=== PATIENT | male | born 1950 | race Caucasian/White ===

== ENCOUNTER 2018-11-10 21:42 | Emergency (ER) | payer OTHER ==
--- NOTE | 2018-11-10 22:01 | EDPHY ---
H & P Stated Complaint: ASTHMA ISSUES, [facility] Time Seen by Provider: 11/10/18 22:01 - Personal History Current Tetanus Diphtheria and Acellular Pertussis (TDAP): Yes - Medical/Surgical History Hx Asthma: Yes Hx Chronic Respiratory Disease: No Hx Diabetes: No Hx Cardiac Disease: No Hx Renal Disease: No Hx Cirrhosis: No Hx Alcoholism: No Hx HIV/AIDS: No Hx Splenectomy or Spleen Trauma: No Other PMH: ASTHMA - Social History Smoking Status: Never smoked Constitutional: Initial Vital Signs Temperature (C) 37.2 C 11/10/18 21:45 Heart Rate 74 11/10/18 21:45 Respiratory Rate 16 11/10/18 21:45 Blood Pressure 158/85 H 11/10/18 21:45 O2 Sat (%) 94 11/10/18 21:45 O2 Delivery Mode Room Air Allergies/Adverse Reactions: No Known Allergies Allergy (Unverified 11/10/18 21:43) Home Medications: Medication Instructions Recorded Symbicort 160-4.5 Mcg Inh (*) 11/10/18 Medical Decision Making ED Course/Re-evaluation: CHIEF COMPLAINT: Concerned about new asthma medication HISTORY OF PRESENT ILLNESS: The patient is a 68 y/o male with a history of asthma complaining of shortness of breath onset 5 days ago. He feels like he is unable to take a full breath. He initially thought that the symptoms were due to a cold, but his symptoms did not improve. He the read the side effects of Symbicort, which is a new medication for him, he became concerned that he could from an asthma attack as that is a side effect. He then used the incentive spirometer, which had lower numbers than normal. Due to the combination of symptoms, he decided to present to the emergency department. No fever, chills, sore throat, chest pain, abdominal pain, urinary or bowel complaints, numbness, paresthesias. REVIEW OF SYSTEMS: A comprehensive 10 system review of systems is otherwise negative aside from elements mentioned in the history of present illness and medical decision making. PHYSICAL EXAM: HR, BP, O2 Sat, RR. Temp noted General Appearance: Alert, well hydrated, appropriate, and non-toxic appearing. Head: Atraumatic without scalp tenderness or obvious injury Eyes: Pupils equal, round, reactive to light and accommodation, EOMI, no trauma , no injection. Ears: Clear bilaterally, no perforation, normal landmarks Nose: Atraumatic, no rhinorrhea, clear. Throat: There is no erythema or exudates, no lesions, normal tonsils, mucus membranes moist. Neck: Supple, 2+ carotid upstroke, nontender, no lymphadenopathy. Respiratory: Prolonged expiratory breath. No retractions, no distress, no wheezes, and no accessory muscle use. Lungs are clear to auscultation bilaterally. Cardiovascular: Regular rate and rhythm, no murmurs, rubs, or gallops. Bilateral carotid, radial, dorsalis pedis, and posterior tibial pulses intact. Good capillary refill all extremities. Gastrointestinal: Abdomen is soft, nontender, non-distended, no masses, no rebound, no guarding, no peritoneal signs. Musculoskeletal: Normal active ROM of all extremities, atraumatic. Neurological: Alert, appropriate, and interactive. The patient has normal DTRs and non-focal cranial nerves, motor, sensory, and cerebellar exam. Skin: No rashes, good turgor, no nodules on palpation. Past medical history: Asthma Past surgical history: Denies Family history: Denies Social history: Friend at bedside, employed, lives in [place] DIAGNOSTICS/PROCEDURES/CRITICAL CARE TIME: Not indicated. DIFFERENTIAL DIAGNOSIS: The differential diagnosis for the patient's shortness of breath and hypoxemia included but was not limited to pneumonia, myocardial infarction, acute mountain sickness, high altitude pulmonary edema, congestive heart failure, and pulmonary embolus. MEDICAL DECISION MAKING: The patient is a 68 y/o male with a history of asthma presenting with shortness of breath onset 5 days ago. On exam he has a prolonged expiratory cough, but his lungs are otherwise clear. 60mg PO Dexamethasone and DuoNeb administered. 1031: Reassessed patient, he is not having any improvement with the DuoNeb. I presume he has a viral bronchitis and is not having an asthma exacerbation. I have advised him to follow up with his PCP. Return precautions provided; patient is comfortable with this plan. - Data Points Medications Given: Discontinued Medications Albuterol/Ipratropium (Duoneb) 3 ml IH EDNOW ONE Stop: 11/10/18 22:21 Last Admin: 11/10/18 22:25 Dose: 3 ml Dexamethasone (Decadron Injection) 6 mg PO EDNOW ONE Stop: 11/10/18 22:21 Last Admin: 11/10/18 22:25 Dose: 6 mg Departure - Departure Disposition: Home, Routine, Self-Care Clinical Impression: Acute bronchitis Qualifiers: Bronchitis organism: other organism Qualified Code(s): J20.8 - Acute bronchitis due to other specified organisms Condition: Good Instructions: Acute Bronchitis (ED) Additional Instructions: 1. Take Symbicort as prescribed. 2. Follow up with your primary care physician within 72 hours for reevaluation. 3. Drink plenty of fluids. 4. Return to the emergency department immediately for high fever, severe headache or neck pain, difficulty breathing, abdominal pain, rash or other worsening of condition. Referrals: [facility],. [Clinic] - As per Instructions Freya Vanegas MD [Medical Doctor] - As per Instructions Report Scribed for: Yury Zazueta Report Scribed by: Amaya Llanes Date of Report: 11/10/18 Time of Report: 22:14
[2018-11-10] MEDS ORDERED: DEXAMETHASONE 10 MG/ML VIAL PO ONE (22:20)
[2018-11-10] MEDS ORDERED: IPRATROPIUM/ALBUTEROL 3 ML DEYVIAL IH ONE (22:20)
[2018-11-10] MEDS ORDERED: IPRATROPIUM/ALBUTEROL 3 ML DEYVIAL ONE (22:20)
[2018-11-10 22:39] VITALS: BP 140/65
== END 2018-11-10 22:38 | disposition home or self-care (01) ==
DX: J20.8 Acute bronchitis due to other specified organisms (principal)
CPT/HCPCS: 99283; J1100